=== PATIENT | male | born 1970 | race African-American/Black ===

== ENCOUNTER 2021-07-09 00:15 | Emergency (ER) | payer OTHER ==
[2021-07-09 00:23] VITALS: BP 121/79
[2021-07-09 01:13] LABS: HEMATOCRIT 43.2 % (39.0-50.0); HEMOGLOBIN 13.9 g/dl (14.0-18.0); IMMATURE GRANULOCYTES 0.5 % (0.0-5.0); MEAN CELL VOLUME 92.9 fL CALC (80.0-100.0); MEAN CORPUSCULAR HGB 29.9 pG CALC (26.0-32.0); MEAN CORPUSCULAR HGB CONC 32.2 g/dL CAL (32.0-36.0); NEUT# 10.18 thou/uL (1.82-7.42); RED BLOOD COUNT 4.65 mill/uL (4.70-6.10); RED CELL DISTRI WIDTH 12.8 % (11.5-15.5)
[2021-07-09 01:35] LABS: ALBUMIN 3.9 g/dL (3.2-5.0); ALKALINE PHOSPHATASE 67 u/l (38-126); AMYLASE 136 u/l (30-110); ANION GAP 13 (6-22 (CALC)); BILIRUBIN, TOTAL 0.6 mg/dL (0.0-1.4); BUN 11 mg/dL (9-20); BUN/CREATININE RATIO 13 (12-20 (CALC)); CARBON DIOXIDE 19 mmol/l (22-30); CHLORIDE 113 mmol/l (95-108); CREATININE 0.8 mg/dL (0.7-1.3); GFR > 60 ML/MIN (>=60 (CALC)); GFR FOR AFR.AMER. > 60 ML/MIN (>=60 (CALC)); LIPASE 352 u/l (23-300); SGOT/AST 19 u/l (17-59); SODIUM 141 mmol/l (137-146); TOTAL PROTEIN 6.9 g/dL (6.3-8.2)
[2021-07-09 02:13] VITALS: BP 109/73
[2021-07-09 03:19] LABS: URINE BLOOD DIPSTICK TRACE-INTACT (NEGATIVE); URINE COLOR YELLOW; URINE GLUCOSE - DIPSTICK NEGATIVE (NEGATIVE); URINE KETONE TRACE mg/dL (NEGATIVE); URINE LEUK ESTERASE TRACE (NEGATIVE); URINE PROTEIN - DIPSTICK NEGATIVE (NEG-TRACE); URINE SPECIFIC GRAVITY >=1.030; URINE UROBILINOGEN - DIPSTICK 0.2 E.U./dL (0.2)
[2021-07-09 03:23] LABS: URINE BILIRUBIN - DIPSTICK NEGATIVE (NEGATIVE); URINE NITRITE - DIPSTICK POSITIVE (Negative)
[2021-07-09 03:28] LABS: URINE BACTERIA MODERATE hpf; URINE EPITHELIAL CELLS FEW EPI/hpf (0-FEW); URINE WBC 0-2 WBC/hpf (0-5)
[2021-07-09] MEDS ORDERED: DONNATA2 PO (04:35)
[2021-07-09] MEDS ORDERED: CIPROFLOXACN500 MG PO (04:36)
[2021-07-09 08:04] VITALS: BP 109/73
== END 2021-07-09 08:04 | disposition home or self-care (01) | DRG 392 ==
LOC: ED 00:15
DX: R10.84 Generalized abdominal pain (principal); R19.7 Diarrhea, unspecified; Z20.822 Contact with and (suspected) exposure to COVID-19
CPT/HCPCS: Q9967

== ENCOUNTER 2021-09-19 01:00 | Emergency (ER) | payer OTHER ==
[~2021-09-19 01:00] MED LIST: CIPROFLOXACN500 MG PO; DONNATA2 PO
[2021-09-19 01:08] VITALS: BP 124/88
[2021-09-19 01:10] VITALS: BP 134/85
[2021-09-19 01:30] VITALS: BP 120/73
[2021-09-19 01:38] LABS: URINE BILIRUBIN - DIPSTICK NEGATIVE (NEGATIVE); URINE BLOOD DIPSTICK TRACE-INTACT (NEGATIVE); URINE COLOR YELLOW; URINE GLUCOSE - DIPSTICK NEGATIVE (NEGATIVE); URINE KETONE TRACE mg/dL (NEGATIVE); URINE LEUK ESTERASE NEGATIVE (NEGATIVE); URINE PH 5.5 (4.5-8.0); URINE PROTEIN - DIPSTICK NEGATIVE (NEG-TRACE); URINE SPECIFIC GRAVITY >=1.030; URINE UROBILINOGEN - DIPSTICK 0.2 E.U./dL (0.2)
[2021-09-19 01:39] LABS: URINE NITRITE - DIPSTICK NEGATIVE (Negative)
[2021-09-19 01:52] LABS: HEMATOCRIT 41.1 % (39.0-50.0); HEMOGLOBIN 13.1 g/dl (14.0-18.0); IMMATURE GRANULOCYTES 0.3 % (0.0-5.0); MEAN CELL VOLUME 92.4 fL CALC (80.0-100.0); MEAN CORPUSCULAR HGB 29.4 pG CALC (26.0-32.0); MEAN CORPUSCULAR HGB CONC 31.9 g/dL CAL (32.0-36.0); NEUT# 3.08 thou/uL (1.82-7.42); RED BLOOD COUNT 4.45 mill/uL (4.70-6.10); RED CELL DISTRI WIDTH 12.3 % (11.5-15.5)
[2021-09-19 02:08] LABS: ALBUMIN 4.2 g/dL (3.2-5.0); ALKALINE PHOSPHATASE 70 u/l (38-126); AMYLASE 92 u/l (30-110); BILIRUBIN, TOTAL 0.4 mg/dL (0.0-1.4); BUN 12 mg/dL (9-20); BUN/CREATININE RATIO 13 (12-20 (CALC)); C-REACTIVE PROTEIN < 0.5 mg/dL (0-0.9); CHLORIDE 111 mmol/l (95-108); CPK 119 u/l (52-200); CREATININE 0.9 mg/dL (0.7-1.3); GFR > 60 ML/MIN (>=60 (CALC)); GFR FOR AFR.AMER. > 60 ML/MIN (>=60 (CALC)); LIPASE 193 u/l (23-300); MAGNESIUM 2.1 mg/dL (1.6-2.3); POTASSIUM 3.8 mmol/l (3.5-5.1); SGOT/AST 20 u/l (17-59); SODIUM 143 mmol/l (137-146); TOTAL PROTEIN 6.9 g/dL (6.3-8.2)
[2021-09-19 02:09] LABS: ANION GAP 13 (6-22 (CALC)); CARBON DIOXIDE 23 mmol/l (22-30)
[2021-09-19 02:36] LABS: TSH, 3RD GENERATION 1.55 uIU/mL (0.47 - 4.68)
[2021-09-19] MEDS ORDERED: TRAMADOL HCL50 MG PO (04:02)
[2021-09-19] MEDS ORDERED: VOLTAREN75 MG PO (04:02)
[2021-09-19] MEDS ORDERED: MECLIZINE25 MG PO (04:02)
[2021-09-19 04:05] VITALS: BP 124/88
== END 2021-09-19 04:20 | disposition home or self-care (01) | DRG 149 ==
LOC: ED 01:00
PROVIDERS: Family Medicine
DX: R42 Dizziness and giddiness (principal); M51.26 Other intervertebral disc displacement, lumbar region; S39.012A Strain of muscle, fascia and tendon of lower back, initial encounter; B34.9 Viral infection, unspecified

== ENCOUNTER 2021-11-20 21:29 | Emergency (ER) | payer OTHER ==
[~2021-11-20] VITALS: Ht 172.7 cm; Wt 86.0 kg
[~2021-11-20 21:29] MED LIST changes: +MECLIZINE25 MG PO; +TRAMADOL HCL50 MG PO; +VOLTAREN75 MG PO
[2021-11-20 22:51] LABS: HEMATOCRIT 40.9 % (39.0-50.0); HEMOGLOBIN 13.3 g/dl (14.0-18.0); MEAN CELL VOLUME 92.7 fL CALC (80.0-100.0); MEAN CORPUSCULAR HGB 30.2 pG CALC (26.0-32.0); MEAN CORPUSCULAR HGB CONC 32.5 g/dL CAL (32.0-36.0); NEUT# 1.79 thou/uL (1.82-7.42); RED BLOOD COUNT 4.41 mill/uL (4.70-6.10); RED CELL DISTRI WIDTH 12.5 % (11.5-15.5)
[2021-11-20 23:08] LABS: ALBUMIN 4.1 g/dL (3.2-5.0); ALKALINE PHOSPHATASE 76 u/l (38-126); BILIRUBIN, TOTAL 0.4 mg/dL (0.0-1.4); BUN 12 mg/dL (9-20); BUN/CREATININE RATIO 13 (12-20 (CALC)); CHLORIDE 108 mmol/l (95-108); CREATININE 0.9 mg/dL (0.7-1.3); GFR FOR AFR.AMER. > 60 ML/MIN (>=60 (CALC)); GFR OTHER RACES > 60 ML/MIN (>=60 (CALC)); SGOT/AST 19 u/l (17-59); SODIUM 142 mmol/l (137-146); TOTAL PROTEIN 6.9 g/dL (6.3-8.2)
[2021-11-20 23:09] LABS: ANION GAP 11 (6-22 (CALC)); CARBON DIOXIDE 28 mmol/l (22-30); POTASSIUM 4.7 mmol/l (3.5-5.1)
[2021-11-20 23:59] VITALS: BP 110/78
== END 2021-11-20 23:59 | disposition home or self-care (01) | DRG 866 ==
LOC: ED 21:29
PROVIDERS: Emergency Medicine
DX: B34.9 Viral infection, unspecified (principal); Z20.822 Contact with and (suspected) exposure to COVID-19

== ENCOUNTER 2021-12-18 22:57 | Emergency (ER) | payer OTHER ==
[~2021-12-18] VITALS: Ht 170.2 cm; Wt 85.0 kg
[2021-12-19 00:27] LABS: HEMATOCRIT 40.3 % (39.0-50.0); IMMATURE GRANULOCYTES 0.2 % (0.0-5.0); MEAN CELL VOLUME 92.2 fL CALC (80.0-100.0); MEAN CORPUSCULAR HGB 29.7 pG CALC (26.0-32.0); MEAN CORPUSCULAR HGB CONC 32.3 g/dL CAL (32.0-36.0); NEUT# 1.91 thou/uL (1.82-7.42); RED BLOOD COUNT 4.37 mill/uL (4.70-6.10); RED CELL DISTRI WIDTH 12.7 % (11.5-15.5)
[2021-12-19 01:14] LABS: ALBUMIN 4.1 g/dL (3.2-5.0); ALKALINE PHOSPHATASE 57 u/l (38-126); ANION GAP 12 (6-22 (CALC)); BILIRUBIN, TOTAL 0.4 mg/dL (0.0-1.4); BUN 16 mg/dL (9-20); BUN/CREATININE RATIO 18 (12-20 (CALC)); CARBON DIOXIDE 27 mmol/l (22-30); CHLORIDE 107 mmol/l (95-108); CREATININE 0.9 mg/dL (0.7-1.3); GFR FOR AFR.AMER. > 60 ML/MIN (>=60 (CALC)); GFR OTHER RACES > 60 ML/MIN (>=60 (CALC)); POTASSIUM 3.8 mmol/l (3.5-5.1); SGOT/AST 18 u/l (17-59); SODIUM 142 mmol/l (137-146); TOTAL PROTEIN 6.9 g/dL (6.3-8.2)
[2021-12-19 01:26] LABS: MYOGLOBIN 26 ng/mL (0 - 121)
[2021-12-19 02:46] LABS: URINE BILIRUBIN - DIPSTICK NEGATIVE (NEGATIVE); URINE BLOOD DIPSTICK NEGATIVE (NEGATIVE); URINE COLOR YELLOW; URINE GLUCOSE - DIPSTICK NEGATIVE (NEGATIVE); URINE KETONE NEGATIVE (NEGATIVE); URINE LEUK ESTERASE NEGATIVE (NEGATIVE); URINE PH 5.5 (4.5-8.0); URINE PROTEIN - DIPSTICK NEGATIVE (NEG-TRACE); URINE SPECIFIC GRAVITY >=1.030
[2021-12-19 02:56] LABS: URINE NITRITE - DIPSTICK NEGATIVE (Negative)
[2021-12-19 03:31] VITALS: BP 125/76
[2021-12-19] MEDS ORDERED: ULTRAM50 M1 PO (03:31)
[2021-12-19] MEDS ORDERED: CYCLOBENZAPRINE10 MG PO (03:31)
== END 2021-12-19 03:37 | disposition home or self-care (01) | DRG 948 ==
LOC: ED 22:57
PROVIDERS: Emergency Medicine
DX: R53.1 Weakness (principal); M54.50 Low back pain, unspecified; G89.29 Other chronic pain

== ENCOUNTER 2022-04-05 18:51 | Emergency (ER) | payer OTHER ==
[~2022-04-05] VITALS: Ht 170.2 cm; Wt 93.7 kg
[2022-04-05] VITALS (8 sets, daily range): BP systolic 126–166; BP diastolic 82–98
[~2022-04-05 18:51] MED LIST changes: +CYCLOBENZAPRINE10 MG PO; +ULTRAM50 M1 PO
[2022-04-05 19:34] LABS: HEMATOCRIT 41.8 % (39.0-50.0); HEMOGLOBIN 13.1 g/dl (14.0-18.0); IMMATURE GRANULOCYTES 0.2 % (0.0-5.0); MEAN CELL VOLUME 90.5 fL CALC (80.0-100.0); MEAN CORPUSCULAR HGB 28.4 pG CALC (26.0-32.0); MEAN CORPUSCULAR HGB CONC 31.3 g/dL CAL (32.0-36.0); NEUT# 2.43 thou/uL (1.82-7.42); RED BLOOD COUNT 4.62 mill/uL (4.70-6.10); RED CELL DISTRI WIDTH 12.5 % (11.5-15.5)
[2022-04-05 19:55] LABS: ALBUMIN 4.5 g/dL (3.2-5.0); ALKALINE PHOSPHATASE 69 u/l (38-126); ANION GAP 11 (6-22 (CALC)); BILIRUBIN, TOTAL 0.4 mg/dL (0.0-1.4); BUN 12 mg/dL (9-20); BUN/CREATININE RATIO 13 (12-20 (CALC)); CARBON DIOXIDE 28 mmol/l (22-30); CHLORIDE 108 mmol/l (95-108); CREATININE 0.9 mg/dL (0.7-1.3); ETHYL ALCOHOL 0 mg/dl (0-30); GFR FOR AFR.AMER. > 60 ML/MIN (>=60 (CALC)); GFR OTHER RACES > 60 ML/MIN (>=60 (CALC)); POTASSIUM 3.7 mmol/l (3.5-5.1); SGOT/AST 28 u/l (17-59); SODIUM 143 mmol/l (137-146); TOTAL PROTEIN 7.5 g/dL (6.3-8.2)
[2022-04-05] MEDS ORDERED: NEURONTIN300 MG PO (20:50)
[2022-04-05] MEDS ORDERED: PROMETHAZINE HY25 M1 PO (20:50)
== END 2022-04-05 21:11 | disposition home or self-care (01) | DRG 563 ==
LOC: ED 18:51
PROVIDERS: Family Medicine
DX: S39.012A Strain of muscle, fascia and tendon of lower back, initial encounter (principal); X58.XXXA Exposure to other specified factors, initial encounter; M54.41 Lumbago with sciatica, right side

== ENCOUNTER 2023-11-19 22:28 | Emergency (ER) | payer OTHER, MEDICAID ==
[~2023-11-19] VITALS: Ht 170.2 cm; Wt 86.0 kg
[~2023-11-19 22:28] MED LIST changes: +NEURONTIN300 MG PO; +PROMETHAZINE HY25 M1 PO
[2023-11-19] MEDS ORDERED: NYSTATIN 15 GM/TUBE TOP ONE (22:50)
[2023-11-19] MEDS ORDERED: valACYclovir 500 MG TAB PO ONE (22:50)
[2023-11-19] MEDS ORDERED: VALTREX1 GM PO (22:57)
[2023-11-19] MEDS ORDERED: LOTRISONE EX (22:57)
[2023-11-19 23:33] VITALS: BP 155/84
== END 2023-11-19 23:39 | disposition home or self-care (01) | DRG 607 ==
LOC: ED 22:28
DX: B35.6 Tinea cruris (principal); B02.9 Zoster without complications

== ENCOUNTER 2023-11-22 22:05 | Emergency (ER) | payer OTHER, MEDICAID ==
[~2023-11-22] VITALS: Ht 170.2 cm; Wt 75.0 kg
[~2023-11-22 22:05] MED LIST changes: +LOTRISONE EX; +VALTREX1 GM PO
[2023-11-22] MEDS ORDERED: TETRACAINE HCL 0.5 %/4 ML SOL OU ONE (22:10)
[2023-11-22] MEDS ORDERED: FLUORESCEIN SODIUM 1 MG EA OU ONE (22:10)
[2023-11-22] MEDS ORDERED: GENTAMICIN0.3 % OU (22:32)
[2023-11-22] MEDS ORDERED: GENTAMICIN SULFATE (OPHTH) 5 ML BTL OU ONE (22:35)
[2023-11-22 23:08] VITALS: BP 128/89
== END 2023-11-22 23:08 | disposition home or self-care (01) | DRG 125 ==
LOC: ED 22:05
DX: S05.02XA Injury of conjunctiva and corneal abrasion without foreign body, left eye, initial encounter (principal); S05.01XA Injury of conjunctiva and corneal abrasion without foreign body, right eye, initial encounter; X58.XXXA Exposure to other specified factors, initial encounter

== ENCOUNTER 2023-12-17 18:31 | Emergency (ER) | payer OTHER, MEDICAID ==
[~2023-12-17] VITALS: Ht 170.2 cm; Wt 86.0 kg
[2023-12-17] VITALS (8 sets, daily range): BP systolic 130–171; BP diastolic 87–139
[~2023-12-17 18:31] MED LIST changes: +GENTAMICIN0.3 % OU
[2023-12-17] MEDS ORDERED: ZOLPIDEM TARTRA10 MG PO (18:46)
[2023-12-17] MEDS ORDERED: PREDNISONE10 MG PO (18:46)
[2023-12-17] MEDS ORDERED: SODIUM CHLORIDE 0.9% 1,000 ML IV STA (19:07)
[2023-12-17] MEDS ORDERED: DICYCLOMINE HCL 20 MG/2 ML VIAL IM ONE (19:10)
[2023-12-17] MEDS ORDERED: PROMETHAZINE HCL 25 MG/ML AMP IV ONE (19:10)
[2023-12-17] MEDS ORDERED: KETOROLAC TROMETHAMINE 30 MG/ML SDV IV ONE (19:10)
[2023-12-17 19:35] LABS: BASO% 0.3 % (0-3); EOS% 1.4 % (0-8); HEMATOCRIT 40.9 % (39.0-50.0); HEMOGLOBIN 13.4 g/dl (14.0-18.0); IMMATURE GRANULOCYTES 0.7 % (0.0-5.0); LYMPH% 23.5 % (15-41); MEAN CELL VOLUME 92.1 fL CALC (80.0-100.0); MEAN CORPUSCULAR HGB 30.2 pG CALC (26.0-32.0); MEAN CORPUSCULAR HGB CONC 32.8 g/dL CAL (32.0-36.0); MONO% 10.5 % (2-13); NEUT# 4.66 thou/uL (1.82-7.42); NEUT% 63.6 % (42-76); RED BLOOD COUNT 4.44 mill/uL (4.70-6.10); RED CELL DISTRI WIDTH 12.7 % (11.5-15.5)
[2023-12-17 19:58] LABS: ALBUMIN 4.2 g/dL (3.2-5.0); BILIRUBIN, TOTAL 0.5 mg/dL (0.2-1.3); CREATININE 1.1 mg/dL (0.7-1.3); POTASSIUM 3.7 mmol/l (3.5-5.1); TOTAL PROTEIN 7.1 g/dL (6.3-8.2)
[2023-12-17] MEDS ORDERED: LACTATED RINGER'S 1,000 ML IV ONE (20:20)
[2023-12-17] MEDS ORDERED: DICYCLOMINE HYD10 MG PO (21:38)
== END 2023-12-17 22:21 | disposition home or self-care (01) | DRG 392 ==
LOC: ED 18:31
PROVIDERS: Family Medicine
DX: K52.9 Noninfective gastroenteritis and colitis, unspecified (principal); Z20.822 Contact with and (suspected) exposure to COVID-19

== ENCOUNTER 2024-04-27 23:07 | Emergency (ER) | payer OTHER, MEDICAID ==
[~2024-04-27] VITALS: Ht 170.2 cm; Wt 86.2 kg
[~2024-04-27 23:07] MED LIST changes: +DICYCLOMINE HYD10 MG PO; +PREDNISONE10 MG PO; +ZOLPIDEM TARTRA10 MG PO
[2024-04-27] MEDS ORDERED: DEXAMETHASONE SOD. PHOSPHATE 10 MG/ML VIAL IV ONE (23:55)
[2024-04-27] MEDS ORDERED: ONDANSETRON HCl 4 MG/2 ML SDV IV ONE (23:55)
[2024-04-27] MEDS ORDERED: HYDROmorphone HCL 2 MG/AMP IV ONE (23:55)
[2024-04-28 02:29] LABS: URINE BILIRUBIN - DIPSTICK Negative (NEGATIVE); URINE BLOOD DIPSTICK Negative (NEGATIVE); URINE COLOR Yellow; URINE GLUCOSE - DIPSTICK Negative (NEGATIVE); URINE KETONE Negative (NEGATIVE); URINE LEUK ESTERASE Negative (NEGATIVE); URINE NITRITE - DIPSTICK Negative (Negative); URINE PROTEIN - DIPSTICK Negative (NEG-TRACE); URINE SPECIFIC GRAVITY 1.025; URINE UROBILINOGEN - DIPSTICK 0.2 E.U./dL (0.2)
[2024-04-28] MEDS ORDERED: DECADRON4 MG PO (02:53)
[2024-04-28 03:30] VITALS: BP 126/82
== END 2024-04-28 03:30 | disposition home or self-care (01) | DRG 552 ==
LOC: ED 23:07
PROVIDERS: Family Medicine
DX: M54.16 Radiculopathy, lumbar region (principal); Z98.1 Arthrodesis status
CPT/HCPCS: J1100; J1171; J2405